=== PATIENT | female | born 1980 | race Caucasian/White ===

== ENCOUNTER 2018-09-20 07:42 | Inpatient (IN) | payer OTHER ==
[~2018-09-20] VITALS: Ht 147.3 cm; Wt 56.0 kg
[2018-09-20 08:09] VITALS: Ht 147.3 cm; Wt 56.0 kg
[2018-09-20 08:10] VITALS: BP 106/66; PULSE 64; RESP 20
[2018-09-20] MEDS ORDERED: LACTATED RINGER'S 1,000 ML IV SCH (10:10)
[2018-09-20] MEDS ORDERED: LIDOCAINE 1% (MPF) 30 ML INJ INJ PRN (10:30)
[2018-09-20] MEDS ORDERED: OXYTOCIN 30 UNITS/LR 500 ML IV SCH ×2 (10:30)
[2018-09-20] MEDS ORDERED: METHYLERGONOVINE 0.2 MG INJ IM PRN (10:30)
[2018-09-20] MEDS ORDERED: AMPICILLIN 2 GM/NS (PMX) 100 ML IV ONE (10:30)
[2018-09-20] MEDS ORDERED: OXYTOCIN 30 UNITS/LR 500 ML IV PRN (10:30)
[2018-09-20] MEDS ORDERED: IBUPROFEN 600 MG TAB PO PRN (10:30)
[2018-09-20] MEDS ORDERED: BUTORPHANOL 1 MG INJ IV PRN (10:30)
[2018-09-20] MEDS ORDERED: MISOPROSTOL 200 MCG TAB PR PRN (10:30)
[2018-09-20] MEDS ORDERED: BUTORPHANOL 2 MG INJ IV PRN (10:30)
[2018-09-20] MEDS ORDERED: CARBOPROST 250 MCG INJ IM PRN (10:30)
[2018-09-20] MEDS: AMPICILLIN 1 GM/NS (PMX) 50 ML IV SCH ×2 (15:49→20:18)
[2018-09-20] MEDS: LACTATED RINGER'S 1,000 ML IV SCH (19:06)
[2018-09-21] MEDS: AMPICILLIN 1 GM/NS (PMX) 50 ML IV SCH ×4 (00:07→10:30)
[2018-09-21] MEDS ORDERED: ACETAMINOPHEN 325 MG TAB PO PRN ×2 (04:30→12:00)
[2018-09-21] MEDS: LACTATED RINGER'S 1,000 ML IV SCH (05:26)
[2018-09-21] MEDS ORDERED: OXYTOCIN 30 UNITS/LR 500 ML IV SCH ×2 (08:20→12:00)
--- NOTE | 2018-09-21 08:26 | HP ---
Date/Time of Note Date/Time of Note DATE: 09/21/18 TIME: 08:25 OB - History Hx of Present Free Text/Dictation AT 38 WEEKS WITH CONTRACTIONS AND BLEEDING Care: Good Care Ultrasounds: Normal mid trimester US Obstetrical Complications: None Medical Complications: None Past Family/Social History * Past Medical, Surgical, Family and Obstetric Histories reviewed from chart. OB Admission Exam Vital Signs Vital Signs Vital Signs Date Temp Pulse Resp B/P (MAP) Pulse Ox O2 O2 Flow FiO2 Time Delivery Rate 09/20/18 98.1 64 20 106/66 Room Air 08:10 (79) Physical Exam HEENT: WNL Heart: Rhythm Normal Lungs: Clear, Equal Abdomen: WNL Extremities: Normal Reflexes: Normal Cervical Dilatation: 8cm Effacement: 100% Station: -1 Membranes: Ruptured Amniotic Fluid: Clear Heart Rate: 130's Accelerations: Accelerations Present Decelerations: No Decelerations Varibility: Moderate Contractions on Admission: 6-10 Minutes Apart Intensity: Moderate Last 72 hours Lab Results CBC & BMP 09/20/18 10:05 OB Assessment/Plan Reason for admission: active labor Plan: Expectant Management AARON VEGA MD Sep 21, 2018 08:26
--- NOTE | 2018-09-21 09:54 | LDN ---
Date/Time of Note Date/Time of Note DATE: 09/21/18 TIME: 09:53 Delivery Summary term , vaginal delivery Placenta Delivered: Spontaneously Meconium: none Episiotomy: No Perineal laceration: 1 Anesthesia type: Local Estimated blood loss: 300 Sponge & Needle done & correct: Yes All needle counts correct: Yes Any foreign bodies felt in the: No AARON VEGA MD Sep 21, 2018 09:54
[2018-09-21] MEDS: LACTATED RINGER'S 1,000 ML IV* SCH ×2 (12:00→20:00)
[2018-09-21] MEDS ORDERED: MAGNESIUM HYDROXIDE 30ML CUP PO PRN (12:00)
[2018-09-21] MEDS ORDERED: ZOLPIDEM 5 MG TAB PO PRN (12:00)
[2018-09-21] MEDS ORDERED: BENZOCAINE 20% 56 ML SPRAY TOP PRN (12:00)
[2018-09-21] MEDS ORDERED: SENNA/DOCUSATE NA (8.6MG/50MG) TAB PO PRN (12:00)
[2018-09-21] MEDS ORDERED: MISOPROSTOL 200 MCG TAB PR PRN (12:00)
[2018-09-21] MEDS ORDERED: METHYLERGONOVINE 0.2 MG INJ IM PRN (12:00)
[2018-09-21] MEDS ORDERED: HYDROCODONE/APAP (5/325) TAB PO PRN (12:00)
[2018-09-21] MEDS ORDERED: LANOLIN HPA 1 PKT TOP PRN (12:00)
[2018-09-21] MEDS ORDERED: CARBOPROST 250 MCG INJ IM PRN (12:00)
[2018-09-21] MEDS ORDERED: OXYTOCIN 30 UNITS/LR 500 ML IV PRN (12:00)
[2018-09-21] MEDS ORDERED: WITCH HAZEL/GLYCERIN PAD PR PRN (12:00)
[2018-09-21] MEDS ORDERED: DIPHENHYDRAMINE 25 MG CAP PO PRN (12:00)
[2018-09-21 12:24] VITALS: BP 99/56; PULSE 74; RESP 16
[2018-09-21 16:35] VITALS: BP 105/56; PULSE 97; RESP 16
[2018-09-21] MEDS: IBUPROFEN 800 MG TAB PO SCH ×2 (17:33→18:00)
--- NOTE | 2018-09-21 17:40 | NUR ---
EOSS: Patient's vital signs stable. IV patent and intact. Voiding without difficulty. Tolerating p.o well. no c/o at this time.
--- NOTE | 2018-09-21 18:48 | NUR ---
IV changed to saline lock. intact.
[2018-09-21 19:55] VITALS: BP 98/54; PULSE 90; RESP 18
[2018-09-22] VITALS: BP 96/50; PULSE 77; RESP 18
[2018-09-22] MEDS: IBUPROFEN 800 MG TAB PO SCH ×4 (00:23→17:56)
[2018-09-22 04:00] VITALS: BP 96/53; PULSE 72; RESP 18
[2018-09-22] MEDS: LACTATED RINGER'S 1,000 ML IV* SCH ×3 (04:00→20:00)
--- NOTE | 2018-09-22 06:53 | NUR ---
EOSS. PT. STABLE.NO RESP. DISTRESS NOTED. NO COMPLAINT OF PAIN OR ANY DISCOMFORT NOTED AT THIS TIME .BONDING WITH HER BABY .MOVING TOWARDS EXPECTED GOALS.
[2018-09-22 08:10] VITALS: BP 92/50; PULSE 77; RESP 18
--- NOTE | 2018-09-22 12:21 | QN ---
Documentation Comment PPD#1 is stable afebrile tolerates diet NO VB +BM +voids VSs table Gen NAD Abd soft NT ND Genitalia No blood at perineum --->Discharge plan tomorrow KARLEE CHATTERJEE M.D. Sep 22, 2018 12:21
[2018-09-22 16:00] VITALS: BP 94/49; PULSE 86; RESP 19
--- NOTE | 2018-09-22 18:17 | NUR ---
EOSS: Vital signs stable, denies pain or discomfort. Fundus firm, lochia small. Bonding with baby.
--- NOTE | 2018-09-22 19:54 | DS ---
Date/Time of Note Date/Time of Note DATE: 09/22/18 TIME: 19:53 Discharge Summary Admission/Discharge Info Admit Date/Time Sep 20, 2018 at 10:00 Discharge Date/Time Discharge Diagnosis term Patient Condition: Stable Hospital Course unremarkable Home Meds No Active Prescriptions or Reported Meds Primary Care Provider Care Physician No Primary Pending Labs Laboratory Tests Test 09/22/18 08:28 White Blood Count 8.8 10^3/ul (4.8-10.8) Red Blood Count 2.69 10^6/ul (4.20-5.40) Hemoglobin 8.5 g/dl (12.0-16.0) Hematocrit 25.8 % (37.0-47.0) Mean Corpuscular Volume 95.9 fl (82.0-101.0) Mean Corpuscular Hemoglobin 31.6 pg (29.0-33.0) Mean Corpuscular Hemoglobin Concent 32.9 g/dl (32.0-37.0) Red Cell Distribution Width 13.7 % (11.5-14.5) Platelet Count 203 10^3/UL (140-415) Mean Platelet Volume 9.4 fl (7.4-10.4) Immature Granulocytes % 0.800 % (0.001-0.429) Neutrophils % 69.5 % (39.0-77.0) Lymphocytes % 22.9 % (15.0-51.0) Monocytes % 6.1 % (0.0-11.0) Eosinophils % 0.6 % (0.0-7.0) Basophils % 0.1 % (0.0-2.0) Nucleated Red Blood Cells % 0.0 /100WBC (0.0-0.0) Immature Granulocytes # 0.070 10^3/ul (0.0-0.031) Neutrophils # 6.1 10^3/ul (1.6-7.5) Lymphocytes # 2.0 10^3/ul (0.8-2.9) Monocytes # 0.5 10^3/ul (0.3-0.9) Eosinophils # 0.1 10^3/ul (0.0-0.5) Basophils # 0.0 10^3/ul (0.0-0.1) Nucleated Red Blood Cells # 0.0 10^3/ul (0.0-0.0) AARON VEGA MD Sep 22, 2018 19:54
[2018-09-22 19:55] VITALS: BP 96/61; PULSE 72; RESP 16
[2018-09-23] MEDS: IBUPROFEN 800 MG TAB PO SCH ×3 (00:11→12:00)
[2018-09-23] MEDS: LACTATED RINGER'S 1,000 ML IV* SCH ×2 (04:00→12:00)
[2018-09-23 04:20] VITALS: BP 95/50; PULSE 75; RESP 18
--- NOTE | 2018-09-23 05:08 | NUR ---
EOSS. PT. STABLE. NO RESP. DISTRESS NOTED .[employer]GRAM MEDICAL DIRECTOR COMPLAINT OF PAIN OR ANY DISCOMFORT NOTED AT THIS TIME. BONDING WITH HER BABY MOVING TOWARDS EXPECTED GOALS.
[2018-09-23 08:10] VITALS: BP 92/54; PULSE 82; RESP 20
[2018-09-23] MEDS ORDERED: VARICELLA VACCINE LIVE/PF 1,350 UNIT/0.5 ML ML SC* ONE (09:00)
[2018-09-23] MEDS ORDERED: DIPHTH/TET/ACEL PERTUSS (ADULT) 0.5 ML VIAL IM* ONE (09:00)
[2018-09-23] MEDS ORDERED: MEASLES,MUMPS,RUBELLA VACCINE INJ SC* ONE (09:00)
--- NOTE | 2018-09-23 13:23 | NUR ---
DISCHARGED IN STABLE CONDITION WITH BABY.
== END 2018-09-23 13:50 | disposition home or self-care (01) | DRG 807 ==
LOC: OBT 07:42 → L-D 07:44 → OBT 10:00 → L-D 10:45 → PP1 09-21 12:04
PROVIDERS: ADMIT Obstetrics & Gynecology; ATTEND Obstetrics & Gynecology
PROC: 10E0XZZ Delivery of Products of Conception, External Approach (ICD-10-PCS; principal; 2018-09-21)
DX: O80 Encounter for full-term uncomplicated delivery (principal); Z37.0 Single live birth; Z3A.38 38 weeks gestation of pregnancy
CPT/HCPCS: 76815; 76818; 80307; 85025; 85610; 85730; 86592; 86762; 86850; 86900; 86901; 87340; 90716; G0463; J0290; J2590; J7120